=== PATIENT | male | born 1995 | race Hispanic/Latino ===

== ENCOUNTER 2025-10-10 08:30 | Emergency (ER) | payer SELFPAY ==
[~2025-10-10] VITALS: Ht 180.3 cm; Wt 96.2 kg
[2025-10-10 09:03] VITALS: BP 125/71; PULSE 82; RESP 16; TEMP 98.1; O2SAT 100
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
== END 2025-10-10 09:55 | disposition home or self-care (01) ==
LOC: EDH 08:30 → EEVIPCON 08:30 → EDH 09:55
DX: M79.631 Pain in right forearm (principal); M79.632 Pain in left forearm; V89.2XXA Person injured in unspecified motor-vehicle accident, traffic, initial encounter; Y93.9 Activity, unspecified; Y92.488 Other paved roadways as the place of occurrence of the external cause; Y99.8 Other external cause status
CPT/HCPCS: 73090; 99283